=== PATIENT | male | born 1995 | race Caucasian/White ===

== ENCOUNTER 2017-01-24 22:23 | Emergency (ER) | payer OTHER ==
[2017-01-24 22:32] VITALS: TEMP 98; BMI 26.2
[2017-01-25] MEDS ORDERED: SODIUM CHLORIDE 1,000 ML IV STA ×2 (00:01→01:43)
[2017-01-25] MEDS ORDERED: PANTOPRAZOLE SODIUM 40 MG in SODIUM CHLORIDE 100 ML IVPB ONE (00:01)
[2017-01-25] MEDS ORDERED: FAMOTIDINE 20 MG/50 ML IVPB 50 ML IVPB ONE ×2 (00:01→00:13)
[2017-01-25] MEDS ORDERED: PANTOPRAZOLE SODIUM 100 ML IVPB ONE (00:13)
--- NOTE | 2017-01-25 00:18 | PDOC ---
History of Present Illness - General Chief Complaint: Pain, Acute Stated Complaint: STOMACH PAIN Time Seen by Provider: 01/24/17 23:12 History Source: Patient Exam Limitations: No Limitations - History of Present Illness Travel History: No Initial Comments: 01/25/17 00:09 21yo Male patient presents to ED c/o abd pain x 2 days. Patient reports symptoms becoming worse and describes the pain as a tearing within his abdomen. Patient states that he has to force himself to eat and has not had a BM in 5 days. Patient regular pattern is daily BM. Denies n/v/d, fever, CP, back pain, diff breathing, or any other complaints at this time. Timing/Duration: reports: getting worse Quality: reports: moderate Abdominal Pain Onset Location: reports: LLQ, epigastric Pain Radiation: reports: no radiation Activities at Onset: reports: no specific activity Treatment Prior to Arrive: worse with: analgesics, antacids, cold pack, heat, laxative, enema, other Aggravating Factors: worse with: None, Defecation, Eating, Emotional upset, Exertion, Anchor, Movement, Voiding, Change in position Alleviating Factors: worse with: None, Belching, Shallow Breathing, Defecation, Eating, Holding Breath, Passing Gas, Change in Position, Rest, Voiding, Vomiting Past History - Travel Traveled outside of the country in the last 30 days: No Close contact w/someone who was outside of country & ill: No - Past Medical History Allergies/Adverse Reactions: Allergies Allergy/AdvReac Type Severity Reaction Status Date / Time No Known Allergies Allergy Verified 01/24/17 22:28 Home Medications: Ambulatory Orders Albuterol 0.083% Nebulizer Tamra [Ventolin 0.083% Nebulizer Soln -] 1 neb NEB Q4H PRN #30 vial 06/23/16 Prednisone [Deltasone -] 50 mg PO DAILY 01/24/17 Docusate Sodium [Colace -] 100 mg PO BID #14 capsule 01/25/17 Metronidazole [Flagyl -] 500 mg PO BID #14 tablet 01/25/17 Asthma: Yes Diabetes: No (pre-diabetic) Suicide Attempt (Hx): No - Immunization History Td Vaccination: Yes Immunization Up to Date: Yes - Psycho/Social/Smoking Cessation Hx Anxiety: No Suicidal Ideation: No Smoking Status: No Smoking History: Current every day smoker Years of Tobacco Use: 0 Have you smoked in the past 12 months: Yes Number of Cigarettes Smoked Daily: 0 Cigars Per Day: 0 Information on smoking cessation initiated: No Hx Alcohol Use: No Drug/Substance Use Hx: No Substance Use Type: Marijuana Abd/GI Specific PMHX - Complaint Specific PMHX Colitis: No Diverticulitis: No Gall Bladder Disease: No GERD: No Hepatitis: No Irritable Bowel Synd (IBS): No Pancreatitis: No GI Ulcer Disease: No Review of Systems - Review of Systems Able to Perform ROS?: Yes Is the patient limited Marshallese proficient: No Constitutional: No: Chills, Fever Respiratory: No: Cough, Shortness of Breath, Stridor, Wheezing Cardiac (ROS): No: Chest Pain, Palpitations, Syncope, Chest Tightness ABD/GI: Yes: Constipated, Nausea, Poor Appetite, Poor Fluid Intake. No: Diarrhea, Difficulty Swallowing, Vomiting : No: Burning, Dysuria, Discharge, Frequency, Flank Pain, Hematuria, Incontinence, Pain, Urgency Musculoskeletal: No: Back Pain Integumentary: No: Bruising, Erythema, Rash, Sweating Neurological: No: Headache All Other Systems: Reviewed and Negative *Physical Exam - Vital Signs Last Vital Signs Temp Pulse Resp BP Pulse Ox 98 F 87 18 113/65 97 01/24/17 22:29 01/24/17 22:29 01/24/17 22:29 01/24/17 22:29 01/24/17 22:29 - Physical Exam General Appearance: Yes: Nourished, Appropriately Dressed. No: Apparent Distress, Mild Distress, Moderate Distress, Severe Distress Neck: positive: Trachea midline, Normal Thyroid, Supple. negative: Rigid, Stridor, Lymphadenopathy (R), Lymphadenopathy (L) Respiratory/Chest: positive: Lungs Clear, Normal Breath Sounds. negative: Respiratory Distress, Accessory Muscle Use, Labored Respiration, Rapid RR Cardiovascular: positive: Regular Rhythm, Regular Rate. negative: Edema, JVD, Murmur Gastrointestinal/Abdominal: positive: Tender, Soft, Increased Bowel Sounds, Guarding, Tenderness ([id number]). negative: Distended, Rebound Musculoskeletal: positive: Normal Inspection. 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 NML intact, Fully Oriented, Alert, Normal Mood/ Affect, Normal Response, Motor Strength 03/23 ED Treatment Course - LABORATORY CBC & Chemistry Diagram: 01/25/17 00:30 01/25/17 00:30 - RADIOLOGY Radiology Studies Ordered: Category Date Time Status ABDOMEN FLAT & UPRIGHT [RAD] Stat Radiology 01/25/17 00:01 Ordered *DC/Admit/Observation/Transfer Diagnosis at time of Disposition: Enteritis Abdominal pain Qualifiers: Abdominal location: left lower quadrant Qualified Code(s): R10.32 - Left lower quadrant pain - Discharge Dispostion Disposition: HOME Condition at time of disposition: Improved Admit: No - Prescriptions Prescriptions: Docusate Sodium [Colace -] 100 mg PO BID #14 capsule Metronidazole [Flagyl -] 500 mg PO BID #14 tablet - Referrals Referrals: Agustin Cooper MD [Primary Care Provider] - Demetrius Brown MD [Staff Physician] - - Patient Instructions Printed Discharge Instructions: Inflammatory Bowel Disease Additional Instructions: FOLLOW UP WITH DR. BROWN (GASTROENTEROLOGY). CALL TO SCHEDULE APPOINTMENT. TAKE MEDICATIONS PRESCRIBED. AVOID ALCOHOL, SPICY FOODS, AND IBUPROFEN UNTIL SEEN AND EVALUATED BY DR. BROWN. RETURN IF YOUR SYMPTOMS WORSEN, OR ANY CONCERNS FOR FURTHER EVALUATION. DRINK LOTS OF FLUIDS. Print Language: PASHTO - Post Discharge Activity Work/School Note: Back to School
[2017-01-25 01:00] LABS: BASOPHIL 0.2 % (0-2.0); EOSINOPHIL 0.3 % (0-4.5); MCH 31.3 pg (25.7-33.7); MCHC 34.6 g/dl (32.0-35.9); MEAN CELL VOLUME 90.7 fl (80-96); MEAN PLT VOLUME 7.6 fl (7.5-11.1); NEUTROPHILS 85.7 % (42.8-82.8); PLATELET COUNT 250 K/MM3 (134-434); RDW 12.6 % (11.9-15.9); WHITE BLOOD COUNT 9.8 K/mm3 (4.0-10.0)
[2017-01-25 01:23] LABS: ALBUMIN 4.2 g/dl (3.4-5.0); BILIRUBIN,DIRECT 0.3 mg/dL (0.0-0.2); BILIRUBIN,TOTAL 1.1 mg/dL (0.2-1.0); CALCIUM 8.7 mg/dL (8.5-10.1); CREATININE 0.8 mg/dL (0.7-1.3); TOT PROT 6.6 g/dl (6.4-8.2)
[2017-01-25 01:31] LABS: URINE APPEARANCE CLEAR; URINE BILIRUBIN NEGATIVE (NEGATIVE); URINE BLOOD NEGATIVE (NEGATIVE); URINE COLOR COLORLESS; URINE GLUCOSE (UA) NEGATIVE (NEGATIVE); URINE KETONE NEGATIVE (NEGATIVE); URINE LEUK ESTERASE NEGATIVE (NEGATIVE); URINE NITRITE NEGATIVE (NEGATIVE); URINE PROTEIN NEGATIVE (NEGATIVE); URINE UROBILINOGEN NEGATIVE E.U./dl (0.2-1.0)
[2017-01-25] MEDS ORDERED: morphine CARPU-JECT 2 MG/1 ML DISP.SYRIN IVPUSH ONE (01:36)
[2017-01-25] MEDS ORDERED: ONDANSETRON 4 MG/2 ML VIAL IVPB ONE (01:37)
[2017-01-25] MEDS ORDERED: ONDANSETRON 4 MG/2 ML VIAL ONE (01:49)
[2017-01-25] MEDS ORDERED: morphine CARPU-JECT 2 MG/1 ML DISP.SYRIN ONE (01:50)
--- NOTE | 2017-01-25 02:00 | PDOC ---
*Physical Exam - Vital Signs Last Vital Signs Temp Pulse Resp BP Pulse Ox 98 F 87 18 113/65 97 01/24/17 22:29 01/24/17 22:29 01/24/17 22:29 01/24/17 22:29 01/24/17 22:29 ED Treatment Course - LABORATORY CBC & Chemistry Diagram: 01/25/17 00:30 01/25/17 00:30 - ADDITIONAL ORDERS Additional order review: Laboratory Results 01/25/17 01/25/17 01:15 00:30 Sodium 141 Potassium 4.0 Chloride 105 Carbon Dioxide 27 Anion Gap 9 BUN 12 Creatinine 0.8 Random Glucose 94 Calcium 8.7 Total Bilirubin 1.1 H D Direct Bilirubin 0.3 H AST 14 L D ALT 27 D Alkaline Phosphatase 86 D Total Protein 6.6 Albumin 4.2 Urine Color Colorless Urine Appearance Clear Urine pH 7.0 Ur Specific [place] 1.006 Urine Protein Negative Urine Glucose (UA) Negative Urine Ketones Negative Urine Blood Negative Urine Nitrite Negative Urine Bilirubin Negative Urine Urobilinogen Negative Ur Leukocyte Esterase Negative 01/25/17 00:30 RBC 4.14 MCV 90.7 MCHC 34.6 RDW 12.6 MPV 7.6 Neutrophils % 85.7 H Lymphocytes % 10.8 Monocytes % 3.0 L Eosinophils % 0.3 D Basophils % 0.2 - Medications Given in the ED: ED Medications Discontinued Medications Generic Name Dose Route Start Last Admin Trade Name Freq PRN Reason Stop Dose Admin Pantoprazole Sodium 40 mg/ 100 mls @ 200 mls/hr 01/25/17 00:01 01/25/17 01:16 Sodium Chloride IVPB 01/25/17 00:30 200 mls/hr ONCE ONE Administration Famotidine/Sodium Chloride 50 mls @ 100 mls/hr 01/25/17 00:01 01/25/17 00:25 Pepcid 20 Mg Premixed Ivpb - IVPB 01/25/17 00:30 100 mls/hr ONCE ONE Administration Sodium Chloride 1,000 mls @ 1,000 mls/hr 01/25/17 00:01 01/25/17 00:24 Normal Saline - IV 01/25/17 01:00 1,000 mls/hr ASDIR STA Administration Morphine Sulfate 2 mg 01/25/17 01:36 01/25/17 01:57 Morphine Injection - IVPUSH 01/25/17 01:37 2 mg ONCE ONE Administration Ondansetron HCl 4 mg 01/25/17 01:37 01/25/17 01:57 Zofran Injection IVPB 01/25/17 01:38 4 mg ONCE ONE Administration Medical Decision Making - Medical Decision Making 01/25/17 02:00 agree with care from CLINICAL APPEALS SPECIALIST [facility] *DC/Admit/Observation/Transfer Diagnosis at time of Disposition: Enteritis, Abdominal pain - Discharge Dispostion Disposition: HOME - Prescriptions Prescriptions: Docusate Sodium [Colace -] 100 mg PO BID #14 capsule Metronidazole [Flagyl -] 500 mg PO BID #14 tablet - Referrals Referrals: Demetrius Brown MD [Staff Physician] - Agustin Cooper MD [Primary Care Provider] - - Patient Instructions Printed Discharge Instructions: Inflammatory Bowel Disease Additional Instructions: FOLLOW UP WITH DR. BROWN (GASTROENTEROLOGY). CALL TO SCHEDULE APPOINTMENT. TAKE MEDICATIONS PRESCRIBED. AVOID ALCOHOL, SPICY FOODS, AND IBUPROFEN UNTIL SEEN AND EVALUATED BY DR. BROWN. RETURN IF YOUR SYMPTOMS WORSEN, OR ANY CONCERNS FOR FURTHER EVALUATION. DRINK LOTS OF FLUIDS. Print Language: CROATIAN - Post Discharge Activity Work/School Note: Back to School
[2017-01-25] MEDS ORDERED: metroNIDAZOLE 250 MG TABLET PO ONE (04:16)
[2017-01-25] MEDS ORDERED: MAGNESIUM HYDROX 2400MG/30ML ORAL SUSPENSION 30 ML CUP PO ONE (04:16)
[2017-01-25] MEDS ORDERED: MAGNESIUM CITRATE 300 ML BOTTLE PO ONE (04:16)
[2017-01-25] MEDS ORDERED: MAG HYDROX/AL HYDROX/SIMETH 30 ML UNIT-DOSE CUP ONE (04:57)
[2017-01-25] MEDS ORDERED: metroNIDAZOLE 250 MG TABLET ONE (04:57)
[2017-01-25 05:09] VITALS: BP 110/46; PULSE 84
== END 2017-01-25 05:09 | disposition home or self-care (01) ==
LOC: JER 22:23
PROC: 3E033NZ Introduction of Analgesics, Hypnotics, Sedatives into Peripheral Vein, Percutaneous Approach (ICD-10-PCS; principal; 2017-01-24)
PROC: 3E03329 Introduction of Other Anti-infective into Peripheral Vein, Percutaneous Approach (ICD-10-PCS; 2017-01-24)
PROC: 3E033GC Introduction of Other Therapeutic Substance into Peripheral Vein, Percutaneous Approach (ICD-10-PCS; 2017-01-24)
PROC: 3E0337Z Introduction of Electrolytic and Water Balance Substance into Peripheral Vein, Percutaneous Approach (ICD-10-PCS; 2017-01-24)
DX: K52.9 Noninfective gastroenteritis and colitis, unspecified (principal); R10.32 Left lower quadrant pain; J45.909 Unspecified asthma, uncomplicated; F17.210 Nicotine dependence, cigarettes, uncomplicated
CPT/HCPCS: 36415; 74020-TC; 74177-TC; 80048; 80076; 81003; 85025; 99282-25

== ENCOUNTER 2017-01-26 11:15 | Emergency (ER) | payer OTHER ==
[2017-01-26 11:34] VITALS: BP 121/76; TEMP 97.8; BMI 25.9
--- NOTE | 2017-01-26 13:14 | PDOC ---
History of Present Illness - General History Source: Patient Exam Limitations: No Limitations - History of Present Illness Initial Comments: 01/26/17 13:33 The patient is a 21 year old male with a past medical history of asthma who presents to the ED with complaints of nausea and vomiting since earlier today. The patient reports multiple episodes of vomiting this morning and is unable to retain food. Patient also reports left quadrant pain, lack of appetite, a subjective fever, and chills associated with present symptoms. Patient was recently seen in the ED 2 days ago for constipation that has since resided. Denies chest pain or shortness of breath. Denies dysuria, frequency, or urgency. Denies any other symptoms. <Makayla Vallecillo - Last Filed: 01/26/17 13:33> <Key Fry - Last Filed: 01/30/17 08:48> - General Chief Complaint: Pain, Acute Stated Complaint: REVISIT/ VOMITING Time Seen by Provider: 01/26/17 12:48 Past History <Makayla Vallecillo - Last Filed: 01/26/17 13:33> - Past Medical History Asthma: Yes Diabetes: No (pre-diabetic) Suicide Attempt (Hx): No - Immunization History Td Vaccination: Yes Immunization Up to Date: Yes - Psycho/Social/Smoking Cessation Hx Anxiety: No Suicidal Ideation: No Smoking Status: No Smoking History: Never smoked Years of Tobacco Use: 0 Have you smoked in the past 12 months: No Number of Cigarettes Smoked Daily: 0 Cigars Per Day: 0 Information on smoking cessation initiated: No Hx Alcohol Use: No Drug/Substance Use Hx: No Substance Use Type: Marijuana <Key Fry - Last Filed: 01/30/17 08:48> - Past Medical History Allergies/Adverse Reactions: Allergies Allergy/AdvReac Type Severity Reaction Status Date / Time No Known Allergies Allergy Verified 01/26/17 11:31 Home Medications: Ambulatory Orders Albuterol 0.083% Nebulizer Tamra [Ventolin 0.083% Nebulizer Soln -] 1 neb NEB Q4H PRN #30 vial 06/23/16 Prednisone [Deltasone -] 50 mg PO DAILY 01/24/17 Docusate Sodium [Colace -] 100 mg PO BID #14 capsule 01/25/17 Metronidazole [Flagyl -] 500 mg PO BID #14 tablet 01/25/17 Ondansetron [Zofran -] 4 mg PO TID PRN #12 tablet 01/26/17 Review of Systems - Review of Systems Able to Perform ROS?: Yes Comments:: 01/26/17 13:33 GENERAL/CONSTITUTIONAL: +fever, chills, lack of appetite. No weakness. HEAD, EYES, EARS, NOSE AND THROAT: No change in vision. No ear pain or discharge. No sore throat. CARDIOVASCULAR: No chest pain or shortness of breath. RESPIRATORY: No cough, wheezing, or hemoptysis. GASTROINTESTINAL: + abdominal pain. nausea, vomiting. No diarrhea or constipation. GENITOURINARY: No dysuria, frequency, or change in urination. MUSCULOSKELETAL: No joint or muscle swelling or pain. No neck or back pain. SKIN: No rash NEUROLOGIC: No headache, vertigo, loss of consciousness, or change in strength/ sensation. ENDOCRINE: No increased thirst. No abnormal weight change. HEMATOLOGIC/LYMPHATIC: No anemia, easy bleeding, or history of blood clots. ALLERGIC/IMMUNOLOGIC: No hives or skin allergy. All Other Systems: Reviewed and Negative <Makayla Vallecillo - Last Filed: 01/26/17 13:33> *Physical Exam - Vital Signs Last Vital Signs Temp Pulse Resp BP Pulse Ox 97.8 F 76 18 121/76 99 01/26/17 11:31 01/26/17 11:31 01/26/17 11:31 01/26/17 11:31 01/26/17 11:31 - Physical Exam Comments: 01/26/17 13:33 GENERAL: Awake, alert, and fully oriented, in no acute distress HEAD: No signs of trauma EYES: PERRLA, EOMI, sclera anicteric, conjunctiva clear ENT:+ dry mucosa. Auricles normal inspection, hearing grossly normal, nares patent, oropharynx clear without exudates. NECK: Normal ROM, supple, no lymphadenopathy, JVD, or masses LUNGS: Breath sounds equal, clear to auscultation bilaterally. No wheezes, and no crackles HEART: Regular rate and rhythm, normal S1 and S2, no murmurs, rubs or gallops ABDOMEN: + left upper quadrant tenderness. Soft, normoactive bowel sounds. No guarding, no rebound. No masses EXTREMITIES: Normal range of motion, no edema. No clubbing or cyanosis. No cords, erythema, or tenderness NEUROLOGICAL: Cranial nerves II through XII grossly intact. Normal speech, normal gait SKIN: Warm, Dry, normal turgor, no rashes or lesions noted. <Makayla Vallecillo - Last Filed: 01/26/17 13:33> - Vital Signs Last Vital Signs Temp Pulse Resp BP Pulse Ox 97.8 F 76 18 121/76 99 01/26/17 11:31 01/26/17 11:31 01/26/17 11:31 01/26/17 11:31 01/26/17 11:31 <eKy Fry - Last Filed: 01/30/17 08:48> ED Treatment Course - LABORATORY CBC & Chemistry Diagram: 01/26/17 13:37 01/26/17 13:37 <Key Fry - Last Filed: 01/30/17 08:48> Medical Decision Making - Medical Decision Making 01/26/17 16:34 Pt improved significantly with IV hydration and GI cocktail. No signs of acute abdomen. Labs wnl. Tolerated PO challenge. Stable for DC home. <Key Fry - Last Filed: 01/30/17 08:48> *DC/Admit/Observation/Transfer - Attestations Scribe Attestion: 01/26/17 13:33 Documentation prepared by Makayla Vallecillo, acting as medical management specialist for Key Fry MD <Makayla Vallecillo - Last Filed: 01/26/17 13:33> - Discharge Dispostion Admit: No <Key Fry - Last Filed: 01/30/17 08:48> Diagnosis at time of Disposition: Nausea and vomiting Qualifiers: Vomiting type: unspecified Vomiting Intractability: non-intractable Qualified Code(s): R11.2 - Nausea with vomiting, unspecified - Discharge Dispostion Disposition: HOME Condition at time of disposition: Stable - Prescriptions Prescriptions: Ondansetron [Zofran -] 4 mg PO TID PRN #12 tablet PRN Reason: Nausea And/Or Vomiting - Referrals Referrals: Agustin Cooper MD [Primary Care Provider] - - Patient Instructions Printed Discharge Instructions: DI for Vomiting -- Adult
[2017-01-26] MEDS ORDERED: KETOROLAC TROMETHAMINE 30 MG/1 ML VIAL IVPUSH ONE (13:19)
[2017-01-26] MEDS ORDERED: SODIUM CHLORIDE 1,000 ML IV STA (13:19)
[2017-01-26] MEDS ORDERED: ONDANSETRON 4 MG/2 ML VIAL IVPUSH ONE (13:19)
[2017-01-26] MEDS ORDERED: FAMOTIDINE 20 MG/50 ML IVPB 50 ML IVPB ONE ×2 (13:19→13:21)
[2017-01-26] MEDS ORDERED: ONDANSETRON 4 MG/2 ML VIAL ONE (13:20)
[2017-01-26] MEDS ORDERED: KETOROLAC TROMETHAMINE 30 MG/1 ML VIAL ONE (13:20)
[2017-01-26 13:53] LABS: BASOPHIL 0.3 % (0-2.0); EOSINOPHIL 0.3 % (0-4.5); MCH 31.6 pg (25.7-33.7); MCHC 34.8 g/dl (32.0-35.9); MEAN PLT VOLUME 7.5 fl (7.5-11.1); NEUTROPHILS 69.5 % (42.8-82.8); PLATELET COUNT 287 K/MM3 (134-434); RDW 12.6 % (11.9-15.9); WHITE BLOOD COUNT 6.5 K/mm3 (4.0-10.0)
[2017-01-26 15:01] LABS: ALBUMIN 4.7 g/dl (3.4-5.0); ALK PHOS 86 U/L (45-117); ANION GAP 11 (8-16); BILIRUBIN,TOTAL 1.3 mg/dL (0.2-1.0); CALCIUM 9.6 mg/dL (8.5-10.1); CO2 26 mmol/L (21-32); CREATININE 0.9 mg/dL (0.7-1.3); GLUCOSE,RANDOM 86 mg/dL (74-106); SGOT/AST 14 U/L (15-37); SGPT/ALT 26 U/L (12-78); TOT PROT 7.4 g/dl (6.4-8.2)
[2017-01-26 15:15] LABS: URINE APPEARANCE CLEAR; URINE BILIRUBIN NEGATIVE (NEGATIVE); URINE BLOOD NEGATIVE (NEGATIVE); URINE COLOR STRAW; URINE GLUCOSE (UA) NEGATIVE (NEGATIVE); URINE KETONE 1+ (NEGATIVE); URINE LEUK ESTERASE NEGATIVE (NEGATIVE); URINE NITRITE NEGATIVE (NEGATIVE); URINE PROTEIN NEGATIVE (NEGATIVE); URINE UROBILINOGEN NEGATIVE E.U./dl (0.2-1.0)
[2017-01-26 16:42] VITALS: PULSE 54
== END 2017-01-26 16:42 | disposition home or self-care (01) ==
LOC: JER 11:15
PROC: 3E043GC Introduction of Other Therapeutic Substance into Central Vein, Percutaneous Approach (ICD-10-PCS; principal; 2017-01-26)
PROC: 3E0333Z Introduction of Anti-inflammatory into Peripheral Vein, Percutaneous Approach (ICD-10-PCS; 2017-01-26)
PROC: 3E033GC Introduction of Other Therapeutic Substance into Peripheral Vein, Percutaneous Approach (ICD-10-PCS; 2017-01-26)
DX: R11.2 Nausea with vomiting, unspecified (principal); J45.909 Unspecified asthma, uncomplicated; R73.03 Prediabetes
CPT/HCPCS: 36415; 80053; 81003; 83690; 85025; 96365; 96375; 99282-25

== ENCOUNTER 2017-10-19 15:03 | Emergency (ER) | payer OTHER ==
--- NOTE | 2017-10-19 15:10 | PDOC ---
Rapid Medical Evaluation Time Seen by Provider: 10/19/17 15:07 Medical Evaluation: Allergies Allergy/AdvReac Type Severity Reaction Status Date / Time No Known Allergies Allergy Verified 10/19/17 15:07 10/19/17 15:07 I performed a brief in-person evaluation of this patient. The patient presents with a chief complaint of: sorethroat, headache, fever and chills and bodyaches x 1 days Pertinent physical exam findings: nad erythematous pharynx, no exudate, unlabored breathing, clear bilateral lung field, no wheezing I have ordered the following: rapid strep throat culture The patient will proceed to the Ed for further evaluation
[2017-10-19 15:11] VITALS: BP 125/64; PULSE 110; TEMP 98.3; BMI 25.1
[2017-10-19] MEDS ORDERED: IBUPROFEN 400 MG TABLET (FP) PO ONE ×2 (16:45→16:49)
--- NOTE | 2017-10-19 16:53 | PDOC ---
History of Present Illness - General Chief Complaint: Cold Symptoms Stated Complaint: HEADACHES, THROAT PAIN Time Seen by Provider: 10/19/17 15:07 History Source: Patient Exam Limitations: No Limitations - History of Present Illness Initial Comments: 10/19/17 16:46 22 yr male with c/o fever, headache body aches, nasal congestion for 2 days. took no meds at home. no abd rimma or nvd. no urinary complaints. 10/19/17 16:54 Timing/Duration: 24 hours Severity: moderate Associated Symptoms: reports: cough, fever/chills Past History - Past Medical History Allergies/Adverse Reactions: Allergies Allergy/AdvReac Type Severity Reaction Status Date / Time No Known Allergies Allergy Verified 10/19/17 15:07 Home Medications: Ambulatory Orders Azithromycin [Zithromax 250mg Tablets -] 250 mg PO UTDICT #6 tab 10/19/17 Cholecalciferol (Vitamin D3) [Vitamin D3 -] 400 unit PO DAILY 10/19/17 Ibuprofen 800 mg PO TID PRN #12 tablet 10/19/17 Ibuprofen 800 mg PO TID PRN #12 tablet 10/19/17 Oseltamivir Phosphate [Tamiflu -] 75 mg PO BID #10 capsule 10/19/17 Oseltamivir Phosphate [Tamiflu] 75 mg PO BID #10 capsule 10/19/17 Asthma: Yes COPD: No Diabetes: (pre-diabetic) - Immunization History Td Vaccination: Yes Immunization Up to Date: Yes - Suicide/Smoking/Psychosocial Hx Smoking Status: No Smoking History: Never smoked Years of Tobacco Use: 0 Have you smoked in the past 12 months: No Number of Cigarettes Smoked Daily: 0 Cigars Per Day: 0 Hx Alcohol Use: No Drug/Substance Use Hx: No Substance Use Type: Marijuana Review of Systems - Review of Systems Able to Perform ROS?: Yes Is the patient limited Setswana proficient: No Constitutional: Yes: Symptoms Reported, Fever HEENTM: Yes: Nose Congestion, Throat Pain Respiratory: Yes: Cough. No: SOB at Rest, Wheezing Cardiac (ROS): No: See HPI Musculoskeletal: Yes: See HPI *Physical Exam - Vital Signs Last Vital Signs Temp Pulse Resp BP Pulse Ox 98.3 F 110 H 22 125/64 96 10/19/17 15:07 10/19/17 15:07 10/19/17 15:07 10/19/17 15:07 10/19/17 15:07 - Physical Exam General Appearance: Yes: Nourished, Appropriately Dressed HEENT: positive: EOMI, PERCY, Normal ENT Inspection, TMs Normal, Pharynx Normal, Nasal Congestion Neck: positive: Supple. negative: Tender, Lymphadenopathy (R), Lymphadenopathy (L) Respiratory/Chest: positive: Lungs Clear, Normal Breath Sounds. negative: Chest Tender, Respiratory Distress Cardiovascular: positive: Regular Rhythm, Tachycardia Gastrointestinal/Abdominal: positive: Normal Bowel Sounds, Soft. negative: Tender Musculoskeletal: positive: Normal Inspection Extremity: positive: Normal Capillary Refill, Normal Inspection, Normal Range of Motion Integumentary: positive: Normal Color, Dry, Warm Neurologic: positive: Fully Oriented, Alert, Normal Mood/Affect, Normal Response , Motor Strength 5/5. negative: Numbness, Sensory Deficit, Finger to Nose ED Treatment Course - ADDITIONAL ORDERS Additional order review: 10/19/17 15:20 Group A Strep Rapid Antigen - Final Throat Medical Decision Making - Medical Decision Making 10/19/17 16:55 cc: fever, headache sore throat nasal congestion started yesterday afternoon no sick contacts or travel no neck pain or rigidity lungs CTA on exam will check flu and strep motrin now 10/19/17 17:37 neg strep, neg flu however pt has symptoms consistent with flu like syndrome pharynx is erythematous with bilateral lymphadenopathy will cover for strep and influenza pt return to ER for any worsening symptoms 10/19/17 17:38 *DC/Admit/Observation/Transfer Diagnosis at time of Disposition: Upper respiratory infection, acute, Viral syndrome - Discharge Dispostion Disposition: HOME Condition at time of disposition: Good - Prescriptions Prescriptions: Azithromycin [Zithromax 250mg Tablets -] 250 mg PO UTDICT #6 tab Ibuprofen 800 mg PO TID PRN #12 tablet PRN Reason: Fever Or Pain Ibuprofen 800 mg PO TID PRN #12 tablet PRN Reason: Fever Or Pain Oseltamivir Phosphate [Tamiflu -] 75 mg PO BID #10 capsule Oseltamivir Phosphate [Tamiflu] 75 mg PO BID #10 capsule - Referrals Referrals: Agustin Cooper MD [Primary Care Provider] - - Patient Instructions Additional Instructions: drink pleanty of fluids to stay well hydrated take the medications as prescribed rest at home follow with the [facility] or your Primary care doctor for follow up next week Return to ER for any worsening symptoms - Post Discharge Activity
== END 2017-10-19 17:47 | disposition home or self-care (01) ==
LOC: JERFT 15:03
DX: J06.9 Acute upper respiratory infection, unspecified (principal); B97.89 Other viral agents as the cause of diseases classified elsewhere; J45.909 Unspecified asthma, uncomplicated; R73.03 Prediabetes
CPT/HCPCS: 87070; 87430; 87804; 99281-25

== ENCOUNTER 2018-07-13 10:08 | Emergency (ER) | payer OTHER ==
[2018-07-13 10:21] VITALS: BP 124/73; PULSE 84; TEMP 98.4; BMI 25.9
--- NOTE | 2018-07-13 10:44 | PDOC ---
History of Present Illness - General Chief Complaint: Pain, Acute Stated Complaint: FELL Time Seen by Provider: 07/13/18 10:33 History Source: Patient Exam Limitations: No Limitations - History of Present Illness Initial Comments: CHIEF COMPLAINT: 22 y/o male with PMH asthma c/o b/l knee pain s/p slip and fall 6 hours ago. HISTORY OF PRESENT ILLNESS: The patient states he slipped on water and fell onto both knees. He went to sleep and work up with some pain so came here. He denies swelling, inability to walk, numbness/tingling in extremities. He did not take any OTC medications for pain. He did not ice knees. PCP is Dr. Cooper Vital signs on arrival are within normal limits. REVIEW OF SYSTEMS: GENERAL/CONSTITUTIONAL: No fever/chills. No weakness. No weight change. MUSCULOSKELETAL: +b/l knee pain. No neck or back pain. SKIN: No rash or easy bruising. NEUROLOGIC: No headache, vertigo, loss of consciousness, or loss of sensation. PHYSICAL EXAM: VITAL_SIGNS: within normal limits GENERAL_APPEARANCE: alert, cooperative, no obvious discomfort. Patient is ambulatory with slight limp. MENTAL_STATUS: speech clear, oriented X 3, responds appropriately to questions. NEURO: motor intact and sensory intact in injured extremity. EXTREMITIES: No edema, erythema, warmth, crepitus or deformities to b/l knees. Negative Lachmann's test b/l. No tibial plateau TTP b/l. Full passive and active ROM of b/l knees. Very minimal medial joint line tenderness of right knee. SKIN: warm, dry, good color. Past History - Past Medical History Allergies/Adverse Reactions: Allergies Allergy/AdvReac Type Severity Reaction Status Date / Time No Known Allergies Allergy Verified 07/13/18 10:24 Home Medications: Ambulatory Orders Azithromycin [Zithromax 250mg Tablets -] 250 mg PO UTDICT #6 tab 10/19/17 Cholecalciferol (Vitamin D3) [Vitamin D3 -] 400 unit PO DAILY 10/19/17 Ibuprofen 800 mg PO TID PRN #12 tablet 10/19/17 Ibuprofen 800 mg PO TID PRN #12 tablet 10/19/17 Oseltamivir Phosphate [Tamiflu -] 75 mg PO BID #10 capsule 10/19/17 Oseltamivir Phosphate [Tamiflu] 75 mg PO BID #10 capsule 10/19/17 Asthma: Yes COPD: No Diabetes: (pre-diabetic) - Immunization History Td Vaccination: Yes Immunization Up to Date: Yes - Suicide/Smoking/Psychosocial Hx Smoking Status: No Smoking History: Never smoked Years of Tobacco Use: 0 Have you smoked in the past 12 months: No Number of Cigarettes Smoked Daily: 0 Cigars Per Day: 0 Hx Alcohol Use: No Drug/Substance Use Hx: No Substance Use Type: Marijuana *Physical Exam - Vital Signs Last Vital Signs Temp Pulse Resp BP Pulse Ox 98.4 F 84 16 124/73 100 07/13/18 10:18 07/13/18 10:18 07/13/18 10:18 07/13/18 10:18 07/13/18 10:18 Medical Decision Making - Medical Decision Making A/P: 22 y/o male with knee soreness s/p slip and fall 6 hours ago. Will discharge to home with supportive care instructions. The patient verbalizes understanding of all instructions, has no further questions and is awaiting discharge. *DC/Admit/Observation/Transfer Diagnosis at time of Disposition: Knee pain, bilateral Qualifiers: Chronicity: acute Qualified Code(s): M25.561 - Pain in right knee; M25.562 - Pain in left knee - Discharge Dispostion Disposition: HOME Condition at time of disposition: Good - Referrals Referrals: Agustin Cooper MD [Primary Care Provider] - 1 week - Patient Instructions Printed Discharge Instructions: DI for Knee Pain, How To Perform RICE (Rest, Ice, Compress, Elevate) Additional Instructions: Discharge Instructions: -Use DAVID bandage on knees for comfort -Follow RICE instructions to help with pain -Take 600mg of over the counter ibuprofen every 6 hours with food for pain -Call Dr. Cooper in 1-2 weeks if no improvement in symptoms - Post Discharge Activity Forms/Work/School Notes: Back to Work
== END 2018-07-13 10:49 | disposition home or self-care (01) ==
LOC: JER 10:08 → JERFT 10:08
DX: S89.81XA Other specified injuries of right lower leg, initial encounter (principal); S89.82XA Other specified injuries of left lower leg, initial encounter; W01.0XXA Fall on same level from slipping, tripping and stumbling without subsequent striking against object, initial encounter; Y93.89 Activity, other specified; Y92.89 Other specified places as the place of occurrence of the external cause; Y99.8 Other external cause status
CPT/HCPCS: 99281-25

== ENCOUNTER 2018-07-21 17:32 | Emergency (ER) | payer OTHER ==
[2018-07-21 17:35] VITALS: BP 139/66; PULSE 98; TEMP 97.7; BMI 26.6
[2018-07-21] MEDS ORDERED: guaiFENesin 200 MG/10 ML 10 ML UNIT-DOSE CUPS PO ONE (18:03)
--- NOTE | 2018-07-21 18:05 | PDOC ---
History of Present Illness - General Chief Complaint: Respiratory Stated Complaint: Cold Symptoms Time Seen by Provider: 07/21/18 17:53 History Source: Patient Exam Limitations: No Limitations - History of Present Illness Initial Comments: 07/21/18 18:44 Patient is 22-year-old male past medical history presents emergency department today for 1 day of cold-like symptoms. Patient states he has a cough and runny nose. He also feels like he has a wheeze. Patient with past medical history of asthma. Self rescue inhaler prior to arrival with relief of symptoms. Denies fevers, chills, earache, sore throat, chest pain, nausea, vomiting and diarrhea. Past History - Travel Traveled outside of the country in the last 30 days: No Close contact w/someone who was outside of country & ill: No - Past Medical History Allergies/Adverse Reactions: Allergies Allergy/AdvReac Type Severity Reaction Status Date / Time No Known Allergies Allergy Verified 07/21/18 17:35 Home Medications: Ambulatory Orders Albuterol Sulfate Inhaler - [Ventolin Hfa Inhaler -] 1 - 2 inh PO QID 07/21/18 Guaifenesin [Robitussin] 10 ml PO Q6H #200 ml 07/21/18 Asthma: Yes COPD: No Diabetes: (pre-diabetic) - Immunization History Td Vaccination: Yes Immunization Up to Date: Yes - Suicide/Smoking/Psychosocial Hx Smoking Status: No Smoking History: Never smoked Years of Tobacco Use: 0 Have you smoked in the past 12 months: No Number of Cigarettes Smoked Daily: 0 Cigars Per Day: 0 Hx Alcohol Use: No Drug/Substance Use Hx: No Substance Use Type: Marijuana Review of Systems - Review of Systems Able to Perform ROS?: Yes Comments:: 07/21/18 18:45 CONSTITUTIONAL: Absent: fever, chills, diaphoresis, generalized weakness, malaise, loss of appetite HEENT: Present: rhinorrhea, congestion Absent: throat pain, throat swelling, difficulty swallowing, mouth swelling, ear pain, eye pain, visual Changes CARDIOVASCULAR: Absent: chest pain, loss of consciousness, palpitations, irregular heart rate, peripheral edema RESPIRATORY: Present: cough, wheezing Absent: shortness of breath, dyspnea with exertion, orthopnea, stridor, hemoptysis GASTROINTESTINAL: Absent: abdominal pain, abdominal distension, nausea, vomiting, diarrhea, constipation, melena, hematochezia GENITOURINARY: Absent: dysuria, frequency, urgency, hesitancy, hematuria, flank pain, genital pain MUSCULOSKELETAL: Absent: myalgia, arthralgia, joint swelling SKIN: Absent: rash, itching, pallor HEMATOLOGIC/IMMUNOLOGIC: Absent: easy bleeding, easy bruising, lymphadenopathy, frequent infections ENDOCRINE: Absent: unexplained weight gain, unexplained weight loss, heat intolerance, cold intolerance NEUROLOGIC: Absent: headache, focal weakness or paresthesias, dizziness, unsteady gait, seizure, mental status changes, bladder or bowel incontinence PSYCHIATRIC: Absent: anxiety, depression, suicidal or homicidal ideation, hallucinations. Is the patient limited Cameroonian proficient: No *Physical Exam - Vital Signs Last Vital Signs Temp Pulse Resp BP Pulse Ox 97.7 F 98 H 18 139/66 99 07/21/18 17:34 07/21/18 17:34 07/21/18 17:34 07/21/18 17:34 07/21/18 17:34 - Physical Exam Comments: 07/21/18 18:46 GENERAL: Well developed, well nourished. Awake and alert. No acute distress. HEENT: Normocephalic, atraumatic. PERRLA, EOMI. No conjunctival pallor. Sclera are non- icteric. Moist mucous membranes. Oropharynx is clear. NECK: Supple. Full ROM. No JVD. Carotid pulses 2+ and symmetric, without bruits. No thyromegaly. No lymphadenopathy. CARDIOVASCULAR: Regular rate and rhythm. No murmurs, rubs, or gallops. Distal pulses are 2+ and symmetric. PULMONARY: No evidence of respiratory distress. Lungs clear to auscultation bilaterally. No wheezing, rales or rhonchi. ABDOMINAL: Soft. Non-tender. Non-distended. No rebound or guarding. No organomegaly. Normoactive bowel sounds. MUSCULOSKELETAL Normal range of motion at all joints. No bony deformities or tenderness. No CVA tenderness. EXTREMITIES: No cyanosis. No clubbing. No edema. No calf tenderness. SKIN: Warm and dry. Normal capillary refill. No rashes. No jaundice. NEUROLOGICAL: Alert, awake, appropriate. Cranial nerves 2-12 intact. No deficits to light touch and temperature in face, upper extremities and lower extremities. No motor deficits in the in face, upper extremities and lower extremities. Normoreflexic in the upper and lower extremities. Normal speech. Toes are down- going bilaterally. Gait is normal without ataxia. PSYCHIATRIC: Cooperative. Good eye contact. Appropriate mood and affect. Medical Decision Making - Medical Decision Making 07/21/18 19:47 Patient is a 22-year-old male medical history presents with one-day of cold- like symptoms. On exam, patient has clear lung sounds to auscultation bilaterally, normal TMs, oropharynx without erythema. Most likely an upper respiratory infection. Patient states that he needs a work note for his cold. We 'll discharge home at this time with supportive measures. Patient is all discharge instructions and all questions were answered. Return precautions given. *DC/Admit/Observation/Transfer Diagnosis at time of Disposition: Common cold - Discharge Dispostion Disposition: HOME Condition at time of disposition: Good Decision to Admit order: No - Prescriptions Prescriptions: Guaifenesin [Robitussin] 10 ml PO Q6H #200 ml - Referrals Referrals: Agustin Cooper MD [Primary Care Provider] - - Patient Instructions Printed Discharge Instructions: DI for Common Cold Additional Instructions: You have an upper respiratory infection, or the common cold. Take your rescue inhaler as prescribed. Please take Motrin 800 mg every 8 hours as needed for pain not to exceed 3000 mg a day. Drink plenty of fluids. Cough drops and warm tea may help your symptoms as well. Please follow up with her primary care doctor this week. Return to the emergency department if you have difficulty breathing, shortness of breath, worsening pain, nausea, vomiting or if you have any changes in your symptoms. - Post Discharge Activity Forms/Work/School Notes: Back to Work
[2018-07-21] MEDS ORDERED: guaiFENesin/D-METHORPHAN HB 10 ML UNIT-DOSE CUPS ONE (18:06)
[2018-07-21] MEDS ORDERED: guaiFENesin/D-M SUGAR-FREE/ACLHOL-FREE 118 ML BOTTLE PO ONE (18:26)
== END 2018-07-21 18:31 | disposition home or self-care (01) ==
LOC: JERFT 17:32
DX: J00 Acute nasopharyngitis [common cold] (principal); R73.03 Prediabetes; Z87.09 Personal history of other diseases of the respiratory system
CPT/HCPCS: 99281-25

== ENCOUNTER 2018-10-20 11:23 | Emergency (ER) | payer OTHER ==
[2018-10-20 11:32] VITALS: BP 124/70; PULSE 76; TEMP 98; BMI 26.6
--- NOTE | 2018-10-20 12:34 | PDOC ---
History of Present Illness - General History Source: Patient Exam Limitations: No Limitations <SangeetaMarielosasim Townsend - Last Filed: 10/20/18 12:38> - History of Present Illness Initial Comments: 10/20/18 12:42 23YOM, with no significant past medical history, who presents to the emergency department with, one episode of blood streaked feces. As per patient, he held his bowel movement in for 20 minutes [address] early this morning and returning home he had one episode of blood streaked feces from a copulus bowel movement. Patient endorses he was constipated for 3 days prior to this BM. He notes his BM today was normal in nature. She denies recent fevers, chills, headache or dizziness. She denies recent nausea or vomit. She denies recent dysuria, frequency, urgency or hematuria. She denies recent chest pain or shortness of breath. Allergies: NKDA Past surgical history: None reported. Primary Care Physician: Dr. Cooper <Jie Chapin - Last Filed: 10/20/18 12:43> - General Chief Complaint: Pain Stated Complaint: STOMACH PAINS,NAUSEA Time Seen by Provider: 10/20/18 11:39 Past History - Past Medical History Asthma: Yes COPD: No Diabetes: (pre-diabetic) GI Disorders: Yes (gall stones) - Immunization History Td Vaccination: Yes Immunization Up to Date: Yes - Suicide/Smoking/Psychosocial Hx Smoking Status: No Smoking History: Never smoked Years of Tobacco Use: 0 Have you smoked in the past 12 months: No Number of Cigarettes Smoked Daily: 0 Cigars Per Day: 0 Hx Alcohol Use: No Drug/Substance Use Hx: No Substance Use Type: Marijuana <Marielos Rutherford - Last Filed: 10/20/18 12:38> <Jie Chapin - Last Filed: 10/20/18 12:43> - Past Medical History Allergies/Adverse Reactions: Allergies Allergy/AdvReac Type Severity Reaction Status Date / Time No Known Allergies Allergy Verified 10/20/18 11:31 Abd/GI Specific PMHX - Complaint Specific PMHX Colitis: No Diverticulitis: No Gall Bladder Disease: No GERD: No Hepatitis: No Irritable Bowel Synd (IBS): No Pancreatitis: No GI Ulcer Disease: No <Marielos Rutherford - Last Filed: 10/20/18 12:38> Review of Systems - Review of Systems Able to Perform ROS?: Yes Comments:: 10/20/18 12:34 Constitutional: no fevers or chills. HEENT: no headache or dizziness. No congestion. No visual/hearing disturbances. CVS: no cp or syncope. Resp: no sob. No cough. Abdomen: no abdominal pain, nausea or vomiting. +rectal bleeding +constipation Genitourinary: no urinary sx, hematuria. MUSCULOSKELETAL: No joint pain and swelling. No neck or back pain. SKIN: no redness or skin changes, no discharge, no rash. No wounds. Hematologic: no easy bruising/bleeding. NEUROLOGIC: No headache, dizziness, LOC or altered mental status. All other systems reviewed and negative, or as documented in HPI. <Marielos Rutherford - Last Filed: 10/20/18 12:38> *Physical Exam - Vital Signs Last Vital Signs Temp Pulse Resp BP Pulse Ox 98 F 76 18 124/70 99 10/20/18 11:28 10/20/18 11:28 10/20/18 11:28 10/20/18 11:28 10/20/18 11:28 - Physical Exam Comments: 10/20/18 12:35 General: Well appearing, awake and alert, NAD. HEENT: NCAT, PERRL, EOMI, clear conjunctiva, anicteric, moist mucus membranes, clear oropharynx, no oral lesions.. Neck: neck supple, FROM Resp: CTAB, normal and even respirations, no respiratory distress CVS: RRR, no murmurs, 2+ peripheral pulses throughout, no peripheral edema Abdomen: soft, NTND, no peritoneal signs. Genitourinary: normal testicle and scrotal sac, nontender. normal external genitalia, no hernia. no rash or lesions or discharge Rectal: no stool, no bleed. no lesions or external hemorrhoids. normal sphincter tone Back: nontender, normal inspection and ROM MSK: no edema, ROSEN x4, ROM intact. No clubbing or cyanosis. normal bulk and tone. Extremities: no calf tenderness Neuro: alert Skin: warm and well perfused, cap refill <2 sec, normal color <Marielos Rutherford - Last Filed: 10/20/18 12:38> - Vital Signs Last Vital Signs Temp Pulse Resp BP Pulse Ox 98 F 76 18 124/70 99 10/20/18 11:28 10/20/18 11:28 10/20/18 11:28 10/20/18 11:28 10/20/18 11:28 <Jie Chapin - Last Filed: 10/20/18 12:43> Moderate Sedation - Procedure Monitoring Vital Signs: Procedure Monitoring Vital Signs Temperature 98 F 10/20/18 11:28 Pulse Rate 76 10/20/18 11:28 Respiratory Rate 18 10/20/18 11:28 Blood Pressure 124/70 10/20/18 11:28 O2 Sat by Pulse Oximetry (%) 99 10/20/18 11:28 <Marielos Rutherford - Last Filed: 10/20/18 12:38> - Procedure Monitoring Vital Signs: Procedure Monitoring Vital Signs Temperature 98 F 10/20/18 11:28 Pulse Rate 76 10/20/18 11:28 Respiratory Rate 18 10/20/18 11:28 Blood Pressure 124/70 10/20/18 11:28 O2 Sat by Pulse Oximetry (%) 99 10/20/18 11:28 <Jie Chapin - Last Filed: 10/20/18 12:43> Medical Decision Making - Medical Decision Making 10/20/18 12:36 HPI as documented. vitals wnl, reassuring abdomen soft, NTND, no findings rectal exam unremarkable, no bleeding no labs indicated likely BM he held caused some inflammation and transient bleeding. constipation care instructions, avoid triggers and holding BM for long time outpatient STD testing on nonemergent basis, just has not had time to f/u lab testing that was ordered from 07/2018. normal exam, so defer to primary DC in stable condition, well appearing, return precautions discussed. PMD followup. <Marielos Rutherford - Last Filed: 10/20/18 12:38> *DC/Admit/Observation/Transfer - Discharge Dispostion Decision to Admit order: No - Attestations Physician Attestion: 10/20/18 12:38 I, Marielos Rutherford MD, attest that this document has been prepared under my direction and personally reviewed by me in its entirety. I further attest, that it accurately reflects all work, treatment, procedures and medical decision -making performed by me. <Marielos Rutherford - Last Filed: 10/20/18 12:38> - Attestations Scribe Attestion: 10/20/18 12:43 Documentation prepared by Jie Chapin, acting as medical lab technologist for Marielos Rutherford MD. <Jie Chapin - Last Filed: 10/20/18 12:43> Diagnosis at time of Disposition: Bowel movement symptom - Discharge Dispostion Disposition: HOME Condition at time of disposition: Improved - Referrals Referrals: Agustin Cooper MD [Primary Care Provider] - - Patient Instructions Printed Discharge Instructions: Increased Dietary Fiber May Improve Constipation Conditions With Pelvic Branden, DI for Abdominal Pain-Adult, DI for Constipation, DI for Rectal Bleeding Additional Instructions: you were evaluated in the department for your symptoms, you have no evidence of bleeding here. do not hold your bowel movements, as that can cause inflammation and bleeding and cause injury high fiber diet and adequate hydration encouraged. instructions provided for constipation care and normalizing bowel movements. follow up with your primary doctor for further care and STD testing. - Post Discharge Activity Forms/Work/School Notes: Back to Work
== END 2018-10-20 12:36 | disposition home or self-care (01) ==
LOC: JER 11:23
DX: K63.89 Other specified diseases of intestine (principal)
CPT/HCPCS: 99281-25

== ENCOUNTER 2018-11-17 12:17 | Emergency (ER) | payer OTHER ==
[2018-11-17 12:38] VITALS: BP 100/60; PULSE 60; TEMP 97.7; BMI 26.6
[2018-11-17] MEDS ORDERED: IBUPROFEN 600 MG TABLET (FP) PO ONE (12:45)
[2018-11-17] MEDS ORDERED: IBUPROFEN 400 MG TABLET (FP) PO ONE (12:48)
--- NOTE | 2018-11-17 12:49 | PDOC ---
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 Pt denies direct trauma, states pain worse with sleeping. no pain meds taken. Pt denies fever or cough or abd pain. Past History - Past Medical History Allergies/Adverse Reactions: Allergies Allergy/AdvReac Type Severity Reaction Status Date / Time No Known Allergies Allergy Verified 11/17/18 12:32 Home Medications: Ambulatory Orders Naproxen [Naprosyn -] 500 mg PO BID PRN #14 tablet 11/17/18 Asthma: Yes COPD: No Diabetes: (pre-diabetic) GI Disorders: Yes (gall stones) - Immunization History Td Vaccination: Yes Immunization Up to Date: Yes - Suicide/Smoking/Psychosocial Hx Smoking Status: No Smoking History: Never smoked Years of Tobacco Use: 0 Have you smoked in the past 12 months: No Number of Cigarettes Smoked Daily: 0 Cigars Per Day: 0 Hx Alcohol Use: No Drug/Substance Use Hx: No Substance Use Type: Marijuana Trauma Specific PMHX - Complaint Specific PMHX Back Injury: Yes Review of Systems - Review of Systems Able to Perform ROS?: Yes Is the patient limited Romansh proficient: No Constitutional: No: Symptoms Reported HEENTM: No: Symptoms Reported Respiratory: No: Symptoms reported Cardiac (ROS): No: Symptoms Reported ABD/GI: No: Symptoms Reported : No: Symptoms Reported Musculoskeletal: Yes: Symptoms Reported, Back Pain *Physical Exam - Vital Signs Last Vital Signs Temp Pulse Resp BP Pulse Ox 97.7 F 60 16 100/60 98 11/17/18 12:32 11/17/18 12:32 11/17/18 12:32 11/17/18 12:32 11/17/18 12:32 - Physical Exam General Appearance: Yes: Nourished, Appropriately Dressed HEENT: positive: EOMI, PERCY Neck: positive: Supple. negative: Tender Respiratory/Chest: positive: Lungs Clear, Normal Breath Sounds. negative: Chest Tender, Rhonchi, Stridor, Wheezing, Hyperresonant Cardiovascular: positive: Regular Rhythm, Regular Rate Gastrointestinal/Abdominal: positive: Normal Bowel Sounds, Soft. negative: Tender Musculoskeletal: positive: Normal Inspection Extremity: positive: Normal Capillary Refill, Normal Inspection, Normal Range of Motion Integumentary: positive: Normal Color, Dry, Warm. negative: Rash Neurologic: positive: Fully Oriented, Alert, Normal Mood/Affect, Normal Response , Motor Strength 5/5 Moderate Sedation - Procedure Monitoring Vital Signs: Procedure Monitoring Vital Signs Temperature 97.7 F 11/17/18 12:32 Pulse Rate 60 11/17/18 12:32 Respiratory Rate 16 11/17/18 12:32 Blood Pressure 100/60 11/17/18 12:32 O2 Sat by Pulse Oximetry (%) 98 11/17/18 12:32 ED Treatment Course - RADIOLOGY Radiology Studies Ordered: Category Date Time Status CHEST PA & LAT [RAD] Stat Radiology 11/17/18 12:45 Ordered Medical Decision Making - Medical Decision Making 11/17/18 12:48 cc: pain to the right mid back reproducable with movement no cough or fever will give motrin cxr now history of asthma no intubations 11/17/18 13:25 most likely muscle strain, spasm no evidence of herpes zoster no chest pain no SOB dc home with NSAIDS follow up with PMD, pt asking for a note to be off work *DC/Admit/Observation/Transfer Diagnosis at time of Disposition: Back pain Qualifiers: Back pain location: thoracic back pain Chronicity: acute Back pain laterality: left Qualified Code(s): M54.6 - Pain in thoracic spine - Discharge Dispostion Disposition: HOME Condition at time of disposition: Good - Prescriptions Prescriptions: Naproxen [Naprosyn -] 500 mg PO BID PRN #14 tablet PRN Reason: Back Pain - Referrals Referrals: Agustin Cooper MD [Primary Care Provider] - - Patient Instructions Additional Instructions: take the pain medicine as prescribed apply warm compresses, or heating pad to the area of pain follow up with your doctor in 1-2 days return if any rashes appear, any worsening symptoms - Post Discharge Activity Forms/Work/School Notes: Back to Work
== END 2018-11-17 13:27 | disposition home or self-care (01) ==
LOC: JER 12:17
DX: M54.6 Pain in thoracic spine (principal); X50.3XXA Overexertion from repetitive movements, initial encounter; Y93.89 Activity, other specified; Y92.511 Restaurant or cafe as the place of occurrence of the external cause; Y99.0 Civilian activity done for income or pay
CPT/HCPCS: 71046-TC-FY; 99281-25

== ENCOUNTER 2018-12-06 02:47 | Emergency (ER) | payer OTHER ==
--- NOTE | 2018-12-06 02:54 | PDOC ---
History of Present Illness - General Chief Complaint: Nausea Stated Complaint: NAUSEA, DIZZINESS Time Seen by Provider: 12/06/18 02:53 History Source: Patient - History of Present Illness Initial Comments: 12/06/18 03:17 23 year old male with history of gallstones c/o Nausea/ vomiting after eating [employer] for dinner with epigastric and RUQ pain. denies diarrhea, fever/ chills, urinary symptoms, testicular pain. Past History - Past Medical History Allergies/Adverse Reactions: Allergies Allergy/AdvReac Type Severity Reaction Status Date / Time No Known Allergies Allergy Verified 11/17/18 12:32 Home Medications: Ambulatory Orders NK [No Known Home Medication] 12/06/18 Asthma: Yes COPD: No Diabetes: (pre-diabetic) GI Disorders: Yes (gall stones) - Immunization History Td Vaccination: Yes Immunization Up to Date: Yes - Suicide/Smoking/Psychosocial Hx Smoking Status: No Smoking History: Never smoked Years of Tobacco Use: 0 Have you smoked in the past 12 months: No Number of Cigarettes Smoked Daily: 0 Cigars Per Day: 0 Hx Alcohol Use: No Drug/Substance Use Hx: No Substance Use Type: Marijuana Review of Systems - Review of Systems Able to Perform ROS?: Yes Is the patient limited Iraqi proficient: No ABD/GI: Yes: Nausea, Vomiting, Abdominal cramping : No: Symptoms Reported, See HPI, Burning, Dysuria, Discharge, Frequency, Flank Pain, Hematuria, Incontinence, Pain, Urgency, Testicular Mass, Testicular Swelling, Lesions, Testicular Pain, Other *Physical Exam - Vital Signs 12/06/18 03:20 Last Vital Signs Temp Pulse Resp BP Pulse Ox 98.4 F 98 H 18 115/57 L 98 12/06/18 03:01 12/06/18 03:01 12/06/18 03:01 12/06/18 03:01 12/06/18 03:01 - Physical Exam General Appearance: Yes: Appropriately Dressed Gastrointestinal/Abdominal: positive: Tender (epigastric are), Increased Bowel Sounds, Tenderness (MINIMAL TENDERNESS). negative: Guarding, Rebound ED Treatment Course - LABORATORY CBC & Chemistry Diagram: 12/06/18 03:14 12/06/18 03:48 Medical Decision Making - Medical Decision Making 12/06/18 03:20 A: abdominal pain P: labs *DC/Admit/Observation/Transfer Diagnosis at time of Disposition: Abdominal pain Qualifiers: Abdominal location: upper abdomen, unspecified Qualified Code(s): R10.10 - Upper abdominal pain, unspecified - Referrals Referrals: Agustin Cooper MD [Primary Care Provider] - - Patient Instructions - Post Discharge Activity
[2018-12-06 03:06] VITALS: BMI 25.8
[2018-12-06] MEDS ORDERED: SODIUM CHLORIDE 1,000 ML IV STA (03:16)
[2018-12-06] MEDS ORDERED: FAMOTIDINE 20 MG/50 ML IVPB 20 MG/50 ML MG IVPB ONE ×2 (03:16→03:27)
[2018-12-06] MEDS ORDERED: ONDANSETRON 4 MG/2 ML VIAL ONE (03:27)
[2018-12-06] MEDS ORDERED: ONDANSETRON 4 MG/2 ML VIAL IVPUSH ONE (03:30)
[2018-12-06 03:33] LABS: BASO % 0.5 % (0-2.0); EOS % 4.5 % (0-4.5); HEMATOCRIT 39.3 % (35.4-49); HEMOGLOBIN 14.3 GM/dL (11.7-16.9); LYMPH % 31.8 % (8-40); MCHC 36.3 g/dl (32.0-35.9); MEAN CELL VOLUME 90.8 fl (80-96); MEAN PLT VOLUME 7.5 fl (7.5-11.1); MONO % 8.3 % (3.8-10.2); NEUT % 54.9 % (42.8-82.8); PLATELET COUNT 298 K/MM3 (134-434); RBC 4.33 M/mm3 (4.00-5.60); RDW 12.6 % (11.9-15.9); WHITE BLOOD COUNT 5.4 K/mm3 (4.0-10.0)
--- NOTE | 2018-12-06 03:58 | PDOC ---
*Physical Exam - Vital Signs Last Vital Signs Temp Pulse Resp BP Pulse Ox 98.4 F 98 H 18 115/57 L 98 12/06/18 03:01 12/06/18 03:01 12/06/18 03:01 12/06/18 03:01 12/06/18 03:01 ED Treatment Course - LABORATORY CBC & Chemistry Diagram: 12/06/18 03:14 12/06/18 03:48 - ADDITIONAL ORDERS Additional order review: Laboratory Results 12/06/18 03:14 Sodium Cancelled Potassium Cancelled Chloride Cancelled Carbon Dioxide Cancelled Anion Gap Cancelled BUN Cancelled Creatinine Cancelled Creat Clearance w eGFR Cancelled Random Glucose Cancelled Calcium Cancelled Total Bilirubin Cancelled AST Cancelled ALT Cancelled Alkaline Phosphatase Cancelled Total Protein Cancelled Albumin Cancelled Lipase Cancelled 12/06/18 03:14 RBC 4.33 MCV 90.8 MCHC 36.3 H RDW 12.6 MPV 7.5 Neutrophils % 54.9 D Lymphocytes % 31.8 D Monocytes % 8.3 Eosinophils % 4.5 D Basophils % 0.5 - Medications Given in the ED: ED Medications Discontinued Medications Generic Name Dose Route Start Last Admin Trade Name Freq PRN Reason Stop Dose Admin Famotidine/Sodium Chloride 20 mg in 50 mls @ 100 mls/hr 12/06/18 03:16 03:36 Pepcid 20 Mg Premixed Ivpb - IVPB 12/06/18 03:45 100 mls/hr ONCE ONE Administration Ondansetron HCl 4 mg 12/06/18 03:30 12/06/18 03:36 Zofran Injection IVPUSH 12/06/18 03:31 4 mg ONCE ONE Administration Medical Decision Making - Medical Decision Making 12/06/18 05:40 Epigastric abd px after eating [employer], pt had hx of cholelithiasis consider cholecystitis given hx and cc after fatty meal, but exam is completely benign. Adb is soft, vs are normal Labs are unremarkable, normal wbc, normal lfts symptomatic improvement stable for dc *DC/Admit/Observation/Transfer Diagnosis at time of Disposition: Abdominal pain Qualifiers: Abdominal location: upper abdomen, unspecified Qualified Code(s): R10.10 - Upper abdominal pain, unspecified - Discharge Dispostion Disposition: HOME Condition at time of disposition: Improved - Referrals Referrals: Agustin Cooper MD [Primary Care Provider] - - Patient Instructions - Post Discharge Activity
[2018-12-06 04:20] LABS: ALBUMIN 3.6 g/dl (3.4-5.0); ALK PHOS 91 U/L (45-117); ANION GAP 6 MMOL/L (8-16); BILIRUBIN,TOTAL 0.6 mg/dL (0.2-1); BLOOD UREA NITROGEN 15 mg/dL (7-18); CALCIUM 8.1 mg/dL (8.5-10.1); CHLORIDE 110 mmol/L (98-107); CO2 30 mmol/L (21-32); CREATININE 0.7 mg/dL (0.55-1.3); GLUCOSE,RANDOM 123 mg/dL (74-106); LIPASE 148 U/L (73-393); POTASSIUM 3.9 mmol/L (3.5-5.1); SGOT/AST 18 U/L (15-37); SGPT/ALT 37 U/L (13-61); SODIUM 145 mmol/L (136-145); TOT PROT 5.9 g/dl (6.4-8.2)
[2018-12-06 05:01] LABS: URINE APPEARANCE CLEAR; URINE BILIRUBIN NEGATIVE (<2.0 mg/dL); URINE COLOR LTYELLOW; URINE GLUCOSE (UA) NEGATIVE (NEGATIVE); URINE KETONE NEGATIVE (NEGATIVE); URINE LEUK ESTERASE NEGATIVE (NEGATIVE); URINE NITRITE NEGATIVE (NEGATIVE); URINE PROTEIN NEGATIVE (NEGATIVE); URINE UROBILINOGEN NEGATIVE mg/dL (0.2-1.0)
--- NOTE | 2018-12-06 05:48 | PDOC ---
History of Present Illness - General Chief Complaint: Nausea Stated Complaint: NAUSEA, DIZZINESS Time Seen by Provider: 12/06/18 02:53 - History of Present Illness Initial Comments: 12/06/18 05:44 23 year old male c/o epigastric/ Upper quadrant pain after eating [facility] fried chicken. patient reports 2 episodes of vomiting. reports being constipated. denies fever/ chills history of gall stones GI: Dr. Brown Past History - Past Medical History Allergies/Adverse Reactions: Allergies Allergy/AdvReac Type Severity Reaction Status Date / Time No Known Allergies Allergy Verified 11/17/18 12:32 Home Medications: Ambulatory Orders NK [No Known Home Medication] 12/06/18 Asthma: Yes COPD: No Diabetes: (pre-diabetic) GI Disorders: Yes (gall stones) - Immunization History Td Vaccination: Yes Immunization Up to Date: Yes - Suicide/Smoking/Psychosocial Hx Smoking Status: No Smoking History: Never smoked Years of Tobacco Use: 0 Have you smoked in the past 12 months: No Number of Cigarettes Smoked Daily: 0 Cigars Per Day: 0 Information on smoking cessation initiated: No Hx Alcohol Use: No Drug/Substance Use Hx: Yes Substance Use Type: Marijuana Abd/GI Specific PMHX - Complaint Specific PMHX Colitis: No Diverticulitis: No Gall Bladder Disease: No GERD: No Hepatitis: No Irritable Bowel Synd (IBS): No Pancreatitis: No GI Ulcer Disease: No Review of Systems - Review of Systems Able to Perform ROS?: Yes Is the patient limited Estonian proficient: No ABD/GI: Yes: Nausea, Vomiting, Abdominal cramping *Physical Exam - Vital Signs Last Vital Signs Temp Pulse Resp BP Pulse Ox 98.4 F 98 H 18 115/57 L 98 12/06/18 03:01 12/06/18 03:01 12/06/18 03:01 12/06/18 03:01 12/06/18 03:01 - Physical Exam General Appearance: Yes: Appropriately Dressed Respiratory/Chest: positive: Lungs Clear, Normal Breath Sounds Cardiovascular: positive: Regular Rhythm, Regular Rate Gastrointestinal/Abdominal: positive: Tender (minimal ruq and epigastric pain), Soft, Increased Bowel Sounds Extremity: positive: Normal Capillary Refill, Normal Inspection Integumentary: positive: Normal Color, Dry, Warm Neurologic: positive: Fully Oriented, Alert Moderate Sedation - Procedure Monitoring Vital Signs: Procedure Monitoring Vital Signs Temperature 98.4 F 01/18/19 03:01 Pulse Rate 98 H 12/06/18 03:01 Respiratory Rate 18 12/06/18 03:01 Blood Pressure 115/57 L 12/06/18 03:01 O2 Sat by Pulse Oximetry (%) 98 12/06/18 03:01 ED Treatment Course - LABORATORY CBC & Chemistry Diagram: 12/06/18 03:14 12/06/18 03:48 - ADDITIONAL ORDERS Additional order review: Laboratory Results 12/06/18 12/06/18 12/06/18 04:41 03:48 03:14 Sodium 145 Cancelled Potassium 3.9 Cancelled Chloride 110 H Cancelled Carbon Dioxide 30 Cancelled Anion Gap 6 L Cancelled BUN 15 Cancelled Creatinine 0.7 Cancelled Creat Clearance w eGFR > 60 Cancelled Random Glucose 123 H Cancelled Calcium 8.1 L Cancelled Total Bilirubin 0.6 Cancelled AST 18 Cancelled ALT 37 Cancelled Alkaline Phosphatase 91 Cancelled Total Protein 5.9 L Cancelled Albumin 3.6 Cancelled Lipase 148 Cancelled Urine Color Ltyellow Urine Appearance Clear Urine pH 7.0 Ur Specific Otto 1.013 Urine Protein Negative Urine Glucose (UA) Negative Urine Ketones Negative Urine Blood Negative Urine Nitrite Negative Urine Bilirubin Negative Urine Urobilinogen Negative Ur Leukocyte Esterase Negative 12/06/18 03:14 RBC 4.33 MCV 90.8 MCHC 36.3 H RDW 12.6 MPV 7.5 Neutrophils % 54.9 D Lymphocytes % 31.8 D Monocytes % 8.3 Eosinophils % 4.5 D Basophils % 0.5 - Medications Given in the ED: ED Medications Discontinued Medications Generic Name Dose Route Start Last Admin Trade Name Ripq PRN Reason Stop Dose Admin Famotidine/Sodium Chloride 20 mg in 50 mls @ 100 mls/hr 12/06/18 03:16 03:36 Pepcid 20 Mg Premixed Ivpb - IVPB 12/06/18 03:45 100 mls/hr ONCE ONE Administration Sodium Chloride 1,000 mls @ 1,000 mls/hr 12/06/18 03:16 12/06/18 03:36 Normal Saline - IV 12/06/18 04:15 1,000 mls/hr ASDIR STA Administration Ondansetron HCl 4 mg 12/06/18 03:30 12/06/18 03:36 Zofran Injection IVPUSH 12/06/18 03:31 4 mg ONCE ONE Administration Progress Note - Progress Note Progress Note: A: abdominal pain P; labs IVF pepcid zofran Medical Decision Making - Medical Decision Making 12/06/18 05:46 patient now PO challenging . reports feeling constipated . + flatus. no vomiting episodes in the ED 12/06/18 05:47 12/06/18 06:16 tolerating PO fluids. well appearing will d/c home *DC/Admit/Observation/Transfer Diagnosis at time of Disposition: Abdominal pain Qualifiers: Abdominal location: upper abdomen, unspecified Qualified Code(s): R10.10 - Upper abdominal pain, unspecified - Discharge Dispostion Disposition: HOME Condition at time of disposition: Improved - Referrals Referrals: Agustin Cooper MD [Primary Care Provider] - - Patient Instructions Printed Discharge Instructions: Viral Gastroenteritis Additional Instructions: drink plenty of fluids start a BRAT ( bananas, rice apples toast) follow up with your doctor return to the ER if symptoms worsen - Post Discharge Activity
[2018-12-06 06:14] VITALS: BP 119/56; PULSE 78; TEMP 98.5
== END 2018-12-06 06:57 | disposition home or self-care (01) ==
LOC: JER 02:47
PROC: 3E033GC Introduction of Other Therapeutic Substance into Peripheral Vein, Percutaneous Approach (ICD-10-PCS; principal; 2018-12-06)
PROC: 3E0337Z Introduction of Electrolytic and Water Balance Substance into Peripheral Vein, Percutaneous Approach (ICD-10-PCS; 2018-12-06)
DX: R10.10 Upper abdominal pain, unspecified (principal)
CPT/HCPCS: 36415; 80053; 81003; 83690; 85025; 96361; 96365; 96375; 99282-25; J7030

== ENCOUNTER 2019-07-30 10:21 | Emergency (ER) | payer OTHER ==
[2019-07-30 10:39] VITALS: BP 123/64; PULSE 71; TEMP 98; BMI 27.2
--- NOTE | 2019-07-30 11:03 | PDOC ---
History of Present Illness - General Chief Complaint: Back Pain Stated Complaint: BACK PAIN Time Seen by Provider: 07/30/19 10:43 - History of Present Illness Initial Comments: 07/30/19 10:58 CHIEF COMPLAINT: low back pain HISTORY OF PRESENT ILLNESS: 23 yo M with no PMH presents to [facility] with low back pain x 1 week. Patient states he was taking out the trash at his job a week ago when he felt his low back tighten up and he has had persistent pain since then "and now it is radiating to the left leg." Denies any loss of bowel or bladder function, denies loss of sensation to legs. Has not taken any medications for pain. No recent travel or sick contacts. PAST MEDICAL HISTORY: Denies past medical history FAMILY HISTORY: Denies SOCIAL HISTORY:Denies tobacco, alcohol, illicit drug use. SURGICAL HISTORY: Denies ALLERGIES: No known drug allergies REVIEW OF SYSTEMS General/Constitutional: Denies fever or chills. Denies weakness, weight change. HEENT: Denies change in vision. Denies ear pain or discharge. Denies sore throat. Cardiovascular: Denies chest pain or shortness of breath. Respiratory: Denies cough, wheezing, or hemoptysis. Gastrointestinal: Denies nausea, vomiting, diarrhea or constipation. Denies rectal bleeding. Genitourinary: Denies dysuria, frequency, or change in urination. Musculoskeletal: Low back pain radiating to left leg. Skin: Denies rash or easy bruising. Neurologic: Denies headache, vertigo, loss of consciousness, or loss of sensation. PHYSICAL EXAM General Appearance: Well-appearing, appropriately dressed. No apparent distress , no intoxication. HEENT: EOMI, PERRLA, normal ENT inspection, normal voice, TMs normal, pharynx normal. No conjunctival pallor. No photophobia, scleral icterus. Neck: Supple. Trachea midline. No tenderness, rigidity, carotid bruit, stridor , lymphadenopathy, or thyromegaly. Respiratory/Chest: Lungs CTAB. No shortness of breath, chest tenderness, respiratory distress, accessory muscle use. No crackles, rales, rhonchi, stridor , wheezing, dullness Cardiovascular: RRR. S1, S2. No JVD, murmur, bradycardia, tachycardia. Vascular Pulses: Dorsalis-Pedis (R): 2+, Dorsalis-Pedis (L): 2+ Gastrointestinal/Abdominal: Normal bowel sounds. Abdomen soft, non-distended. No tenderness or rebound tenderness. No organomegaly, pulsatile mass, guarding , hernia, hepatomegaly, splenomegaly. Lymphatic: No adenopathy, tenderness. Musculoskeletal/Extremities: Sensation intact to b/l lower extremities, no saddle anesthesia. Fully ambulatory. Normal inspection. FROM of all extremities, normal capillary refill. Pelvis Stable. No CVA tenderness. No tenderness to extremities, pedal edema, swelling, erythema or deformity. Integumentary: Appropriate color, dry, warm. 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 Fully oriented, alert. Appropriate mood/affect. Motor strength 5/5. No appreciable EOM palsy, facial droop or sensory deficit. Past History - Past Medical History Allergies/Adverse Reactions: Allergies Allergy/AdvReac Type Severity Reaction Status Date / Time No Known Allergies Allergy Verified 07/30/19 10:36 Home Medications: Ambulatory Orders Cyclobenzaprine HCl 7.5 mg PO HS #10 tablet 07/30/19 Diclofenac Sodium 75 mg PO BID #20 tablet. 07/30/19 Asthma: Yes COPD: No Diabetes: (pre-diabetic) GI Disorders: Yes (gall stones) - Immunization History Td Vaccination: Yes Immunization Up to Date: Yes - Suicide/Smoking/Psychosocial Hx Smoking Status: No Smoking History: Current every day smoker Years of Tobacco Use: 0 Have you smoked in the past 12 months: Yes Number of Cigarettes Smoked Daily: 0 Cigars Per Day: 0 Information on smoking cessation initiated: Yes Hx Alcohol Use: Yes Drug/Substance Use Hx: Yes Substance Use Type: Marijuana Trauma Specific PMHX - Complaint Specific PMHX Back Injury: Yes *Physical Exam - Vital Signs Last Vital Signs Temp Pulse Resp BP Pulse Ox 98 F 71 18 123/64 100 07/30/19 10:36 07/30/19 10:36 07/30/19 10:36 07/30/19 10:36 07/30/19 10:36 Medical Decision Making - Medical Decision Making 07/30/19 11:01 23 yo M with no PMH presents to [facility] with low back pain x 1 week. Patient refused Toradol. NSAIDS, flexeril. Advised patient to take medication as prescribed and follow up with orthopedics if symptoms persist. Advised patient of signs and symptoms for return to ED. Patient verbalized understanding and agrees to plan. *DC/Admit/Observation/Transfer Diagnosis at time of Disposition: Low back pain with sciatica Qualifiers: Chronicity: acute Back pain laterality: left Sciatica laterality: sciatica of left side Qualified Code(s): M54.42 - Lumbago with sciatica, left side - Discharge Dispostion Disposition: HOME Condition at time of disposition: Stable Decision to Admit order: No - Prescriptions Prescriptions: Cyclobenzaprine HCl 7.5 mg PO HS #10 tablet Diclofenac Sodium 75 mg PO BID #20 tablet.dr - Referrals Referrals: Shahab Jacobsen DO [Staff Physician] - - Patient Instructions Printed Discharge Instructions: DI for Back Pain With Sciatica Additional Instructions: Please take medications as prescribed. As discussed, if symptoms persist past 7 -10 days, please follow up with orthopedics. If you develop any loss of sensation to your legs, any loss of bowel or bladder function, or are unable to walk, please return to the ER immediately. - Post Discharge Activity Forms/Work/School Notes: Back to Work
== END 2019-07-30 11:22 | disposition home or self-care (01) ==
LOC: JERFT 10:21
DX: M54.42 Lumbago with sciatica, left side (principal); F17.210 Nicotine dependence, cigarettes, uncomplicated; R73.03 Prediabetes; J45.909 Unspecified asthma, uncomplicated
CPT/HCPCS: 99282-25

== ENCOUNTER 2019-12-11 17:13 | Emergency (ER) | payer OTHER ==
[2019-12-11 17:23] VITALS: BP 134/84; PULSE 114; TEMP 99.8; BMI 27.2
[2019-12-11] MEDS ORDERED: IBUPROFEN 600 MG TABLET (FP) PO ONE ×2 (18:00→18:01)
[2019-12-11] MEDS ORDERED: DEXAMETHASONE LIQUID 0.5 MG/5 ML PO ONE (18:00)
[2019-12-11] MEDS ORDERED: ALBUTEROL SO4 2.5/IPRATROPIUM 0.5 INH SOL 3 ML VIAL.NEB. NEB ONE (18:01)
[2019-12-11] MEDS ORDERED: DEXAMETHASONE SOD PHOSPHATE 10 MG/1 ML VIAL ONE (18:02)
--- NOTE | 2019-12-11 18:18 | PDOC ---
History of Present Illness - General Chief Complaint: Cold Symptoms Stated Complaint: COLD SYMPTOMS Time Seen by Provider: 12/11/19 17:27 History Source: Patient Exam Limitations: No Limitations - History of Present Illness Initial Comments: 12/11/19 18:15 24-year-old male with history of asthma presents complaining of productive cough , body aches, frontal headache, sore throat, subjective fever and chills x2 days. Denies chest pain, back pain, abdominal pain, nausea, vomiting, diarrhea , sick contacts or recent travel. Took NyQuil last night. ROS: GENERAL/CONSTITUTIONAL: fever, chills, denies weakness, dizziness HEAD, EYES, EARS, NOSE AND THROAT: Sore throat, no changes in vision, No ear pain or discharge CARDIOVASCULAR: No chest pain RESPIRATORY: Cough GASTROINTESTINAL: No pain, nausea, vomiting, diarrhea or constipation GENITOURINARY: No dysuria MUSCULOSKELETAL: No neck or back pain SKIN: No rash NEUROLOGIC: No headache, vertigo, loss of consciousness, or loss of sensation PE: GENERAL: well-appearing, NAD HEAD: NCAT EYES: Pupils equal, round and reactive to light, sclera anicteric, conjunctiva clear ENT: Normal bilateral ear canals, normal TM's, pharynx: Minimal erythema erythema, no exudate, uvula midline NECK: supple, no lymphadenopathy CHEST: nontender RESP: Mild wheezing throughout lung diggs CARDIO: rrr, no m/g/r ABD: +BS, soft, nontender, non distended BACK: no midline spinal ttp, no CVAT EXTREMITIES: Normal range of motion, no edema NEUROLOGICAL: Normal speech, normal gait SKIN: Warm, Dry Is this a multiple visit Asthma Patient?: No Past History - Past Medical History Allergies/Adverse Reactions: Allergies Allergy/AdvReac Type Severity Reaction Status Date / Time No Known Allergies Allergy Verified 12/11/19 17:23 Home Medications: Ambulatory Orders Cyclobenzaprine HCl 7.5 mg PO HS #10 tablet 07/30/19 Diclofenac Sodium 75 mg PO BID #20 tablet. 07/30/19 Ibuprofen 600 mg PO Q6H #20 tablet 12/11/19 Asthma: Yes COPD: No Diabetes: (pre-diabetic) GI Disorders: Yes (gall stones) - Immunization History Td Vaccination: Yes Immunization Up to Date: Yes - Psycho Social/Smoking Cessation Hx Smoking Status: No Smoking History: Current every day smoker Years of Tobacco Use: 0 Have you smoked in the past 12 months: Yes Number of Cigarettes Smoked Daily: 0 Cigars Per Day: 0 Information on smoking cessation initiated: No Hx Alcohol Use: No Drug/Substance Use Hx: Yes (MARIJUANA) Substance Use Type: Marijuana *Physical Exam - Vital Signs Last Vital Signs Temp Pulse Resp BP Pulse Ox 99.8 F H 114 H 17 134/84 99 12/11/19 17:20 12/11/19 17:20 12/11/19 17:20 12/11/19 17:20 12/11/19 17:20 ED Treatment Course - Medications Given in the ED: ED Medications Discontinued Medications Generic Name Dose Route Start Last Admin Trade Name Freq PRN Reason Stop Dose Admin Dexamethasone 10 mg 12/11/19 18:00 12/11/19 18:02 Decadron Liquid - PO 12/11/19 18:01 10 mg ONCE ONE Administration Ibuprofen 600 mg 12/11/19 18:00 12/11/19 18:03 Motrin - PO 12/11/19 18:01 600 mg ONCE ONE Administration Medical Decision Making - Medical Decision Making 12/11/19 18:17 24-year-old male with history of asthma presents with flu-like symptoms. Wheezing on exam DuoNeb Decadron P.o. ibuprofen P.o. fluids Reassess 12/11/19 19:42 Lungs are clear patient feels better repeat HR 100, sat 98% Tolerating p.o. fluids Stable for discharge Discharge - Discharge Information Problems reviewed: Yes Clinical Impression/Diagnosis: Viral illness Condition: Stable Disposition: HOME - Admission No - Follow up/Referral Referrals: Agustin Cooper MD [Primary Care Provider] - - Patient Discharge Instructions Additional Instructions: Rest, remain hydrated Take ibuprofen 600 mg every 6 hours as needed for body aches or fever Follow-up with your doctor within 1 week Return to ED if symptoms worsen - Post Discharge Activity
== END 2019-12-11 19:51 | disposition home or self-care (01) ==
LOC: JERFT 17:13
DX: B34.9 Viral infection, unspecified (principal); J45.909 Unspecified asthma, uncomplicated; F17.210 Nicotine dependence, cigarettes, uncomplicated
CPT/HCPCS: 99281-25

== ENCOUNTER 2021-04-25 05:32 | Emergency (ER) | payer OTHER ==
[2021-04-25 05:41] VITALS: BP 117/71; PULSE 76; TEMP 98.2; BMI 24.3
== END 2021-04-25 06:34 | disposition home or self-care (01) ==
LOC: JER 05:32
DX: K80.50 Calculus of bile duct without cholangitis or cholecystitis without obstruction (principal)
CPT/HCPCS: 99281-25

== ENCOUNTER 2022-03-26 22:24 | Emergency (ER) | payer OTHER ==
[2022-03-26 22:52] VITALS: BP 104/60; PULSE 78; TEMP 98.3; BMI 25.8
[2022-03-26] MEDS ORDERED: IBUPROFEN 400 MG TABLET (FP) PO ONE ×3 (23:15→23:17)
== END 2022-03-27 00:15 | disposition home or self-care (01) ==
LOC: JER 22:24
DX: R42 Dizziness and giddiness (principal); R51.9 Headache, unspecified
CPT/HCPCS: 99283-25

== ENCOUNTER 2022-08-17 06:05 | Emergency (ER) | payer OTHER ==
[2022-08-17 06:11] VITALS: BP 122/71; PULSE 76; RESP 17; TEMP 98.1; BMI 25.8
[2022-08-17] MEDS ORDERED: ONDANSETRON 4 MG/2 ML VIAL IVPUSH ONE (07:36)
[2022-08-17] MEDS ORDERED: SODIUM CHLORIDE 1,000 ML IV STA (07:36)
[2022-08-17] MEDS ORDERED: ACETAMINOPHEN 1000 MG/100 ML BAG IVPB ONE (07:36)
[2022-08-17] MEDS ORDERED: FAMOTIDINE 20 MG/50 ML IVPB 20 MG/50 ML MG IVPB ONE ×2 (07:37→07:48)
[2022-08-17] MEDS ORDERED: ONDANSETRON 4 MG/2 ML VIAL ONE (07:47)
[2022-08-17] MEDS ORDERED: ACETAMINOPHEN INJECTION 100 ML IVPB ONE (07:49)
[2022-08-17 08:30] LABS: BASO % 0.3 % (0-2.0); EOS % 0.8 % (0-4.5); HEMATOCRIT 40.1 % (35.4-49); HEMOGLOBIN 13.8 GM/dL (11.7-16.9); LYMPH % 13.2 % (8-40); MCH 32.5 pg (25.7-33.7); MCHC 34.5 g/dl (32.0-35.9); MEAN CELL VOLUME 94.1 fl (80-96); MEAN PLT VOLUME 7.1 fl (7.5-11.1); MONO % 6.8 % (3.8-10.2); NEUT % 78.9 % (42.8-82.8); PLATELET COUNT 330 10^3/uL (134-434); RBC 4.26 M/mm3 (4.00-5.60); RDW 12.2 % (11.9-15.9); WHITE BLOOD COUNT 10.2 K/mm3 (4.0-10.0)
[2022-08-17 08:31] LABS: PH,URINE 6.5 (5.0-8.0); URINE APPEARANCE CLEAR; URINE BILIRUBIN NEGATIVE (NEGATIVE); URINE COLOR YELLOW; URINE GLUCOSE (UA) NEGATIVE (NEGATIVE); URINE KETONE TRACE (NEGATIVE); URINE LEUK ESTERASE NEGATIVE (NEGATIVE); URINE NITRITE NEGATIVE (NEGATIVE); URINE PROTEIN NEGATIVE (NEGATIVE)
[2022-08-17 08:54] LABS: PROTHROMBIN TIME (PATIENT) 11.5 SEC (9.7-13.0)
[2022-08-17 09:15] LABS: ALBUMIN 4.6 g/dl (3.4-5.0); BLOOD UREA NITROGEN 17.1 mg/dL (7-18); CALCIUM 9.5 mg/dL (8.5-10.1)
[2022-08-17 09:16] LABS: CREATININE 0.9 mg/dL (0.55-1.3)
[2022-08-17 09:17] LABS: BILIRUBIN,TOTAL 1.7 mg/dL (0.2-1); TOT PROT 7.4 g/dl (6.4-8.2)
[2022-08-17] MEDS ORDERED: PIPERACILLIN/TAZOB 4.5 GM 4.5 GM in DEXTROSE 5%-WATER 100 ML IVPB ONE (11:42)
[2022-08-17] MEDS ORDERED: PIPERACILLIN/TAZOB 4.5 GM 4.5 GM/100 ML BAG IVPB ONE (11:48)
== END 2022-08-17 12:27 | disposition left against medical advice (07) ==
LOC: JER 06:05
PROC: 3E033GC Introduction of Other Therapeutic Substance into Peripheral Vein, Percutaneous Approach (ICD-10-PCS; principal; 2022-08-17)
DX: K81.9 Cholecystitis, unspecified (principal); R74.01 Elevation of levels of liver transaminase levels
CPT/HCPCS: 36415; 71046-TC-FY; 74177-TC; 76705-TC; 80053; 81003; 83690; 84484; 85025; 85610; 86850; 86900; 86901; 93005; 93010; 99285-25; Q9967

== ENCOUNTER 2023-07-19 23:33 | Emergency (ER) | payer OTHER ==
[2023-07-19 23:40] VITALS: BP 120/75; PULSE 69; RESP 18; TEMP 98.3; BMI 28.0
[2023-07-19] MEDS ORDERED: ALBUTEROL SO4 2.5/IPRATROPIUM 0.5 INH SOL 3 ML VIAL.NEB. NEB ONE ×2 (23:49)
[2023-07-19] MEDS ORDERED: ACETAMINOPHEN 325 MG TABLET (FP) PO ONE (23:49)
[2023-07-19] MEDS ORDERED: ACETAMINOPHEN 325 MG TABLET (FP) ONE (23:52)
== END 2023-07-20 00:17 | disposition home or self-care (01) ==
LOC: JER 23:33
PROC: 3E0F7GC Introduction of Other Therapeutic Substance into Respiratory Tract, Via Natural or Artificial Opening (ICD-10-PCS; principal; 2023-07-19)
DX: R05.9 Cough, unspecified (principal); R06.02 Shortness of breath; R07.89 Other chest pain; B34.9 Viral infection, unspecified; J45.901 Unspecified asthma with (acute) exacerbation; J34.89 Other specified disorders of nose and nasal sinuses; R11.0 Nausea; Z20.822 Contact with and (suspected) exposure to COVID-19
CPT/HCPCS: 0241U-QW; 99283-25

== ENCOUNTER 2023-07-29 10:28 | Emergency (ER) | payer OTHER ==
[2023-07-29 10:43] VITALS: BP 128/84; PULSE 73; RESP 18; BMI 28.0
== END 2023-07-29 13:28 | disposition home or self-care (01) ==
LOC: JER 10:28 → JERFT 10:28
DX: S62.346A Nondisplaced fracture of base of fifth metacarpal bone, right hand, initial encounter for closed fracture (principal); M79.644 Pain in right finger(s); W18.30XA Fall on same level, unspecified, initial encounter
CPT/HCPCS: 73110-TC-RT-FY; 73130-TC-RT-FY; 99283-25

== ENCOUNTER 2024-02-27 08:43 | Emergency (ER) | payer OTHER ==
[2024-02-27 08:49] VITALS: BP 114/63; PULSE 65; RESP 18; TEMP 97.9; BMI 28.0
== END 2024-02-27 10:30 | disposition home or self-care (01) ==
LOC: JER 08:43
DX: L30.9 Dermatitis, unspecified (principal); R10.11 Right upper quadrant pain
CPT/HCPCS: 99283-25

== ENCOUNTER 2024-08-31 09:47 | Emergency (ER) | payer OTHER ==
[2024-08-31 09:53] VITALS: BP 126/77; PULSE 83; RESP 18; TEMP 98.4; BMI 26.5
[2024-08-31] MEDS ORDERED: ALBUTEROL SO4 2.5/IPRATROPIUM 0.5 INH SOL 3 ML VIAL.NEB. NEB ONE (11:40)
[2024-08-31] MEDS: ALBUTEROL SO4 2.5/IPRATROPIUM 0.5 INH SOL 3 ML VIAL.NEB. NEB SCH (11:43)
== END 2024-08-31 12:36 | disposition home or self-care (01) ==
LOC: JER 09:47
PROC: 3E0F7GC Introduction of Other Therapeutic Substance into Respiratory Tract, Via Natural or Artificial Opening (ICD-10-PCS; principal; 2024-08-31)
DX: J45.21 Mild intermittent asthma with (acute) exacerbation (principal); R06.2 Wheezing
CPT/HCPCS: 99283-25

== ENCOUNTER 2024-11-23 20:55 | Emergency (ER) | payer OTHER ==
[2024-11-23 21:01] VITALS: BP 136/77; BMI 25.8
[2024-11-23] MEDS ORDERED: ALBUTEROL SO4 2.5/IPRATROPIUM 0.5 INH SOL 3 ML VIAL.NEB. NEB ONE ×2 (21:41→21:42)
[2024-11-23] MEDS ORDERED: ACETAMINOPHEN 500 MG TABLET (FP) ONE (21:41)
[2024-11-23] MEDS ORDERED: IBUPROFEN 600 MG TABLET (FP) PO ONE ×2 (21:41→21:44)
[2024-11-23] MEDS: ALBUTEROL SO4 2.5/IPRATROPIUM 0.5 INH SOL 3 ML VIAL.NEB. NEB ONE (21:54)
[2024-11-23] MEDS: ACETAMINOPHEN 500 MG TABLET (FP) PO ONE (21:54)
[2024-11-23] MEDS: IBUPROFEN 600 MG TABLET (FP) PO ONE (21:54)
[2024-11-23 22:54] VITALS: PULSE 112; RESP 20; TEMP 98.1
== END 2024-11-23 22:54 | disposition home or self-care (01) ==
LOC: JERFT 20:55
PROC: 3E0F7GC Introduction of Other Therapeutic Substance into Respiratory Tract, Via Natural or Artificial Opening (ICD-10-PCS; principal; 2024-11-23)
DX: J10.1 Influenza due to other identified influenza virus with other respiratory manifestations (principal); R05.9 Cough, unspecified; R09.89 Other specified symptoms and signs involving the circulatory and respiratory systems; M79.10 Myalgia, unspecified site; R19.7 Diarrhea, unspecified; J06.9 Acute upper respiratory infection, unspecified; Z20.822 Contact with and (suspected) exposure to COVID-19
CPT/HCPCS: 0241U-QW; 99283-25